=== PATIENT | female | born 1960 | race Caucasian/White ===

== ENCOUNTER 2019-04-29 19:13 | Emergency (ER) | payer MEDICARE ==
[2019-04-29] MEDS ORDERED: NS 1,000 ML IV ONE (19:45)
[2019-04-29 19:48] LABS: BASO % 0.6 % (0.0-1.0); EOS # 0.1 10^3/uL (0.0-0.50); EOS % 1.8 % (0.0-3.0); HEMATOCRIT 40.4 % (36.0-47.0); LYMPH # 1.5 10^3/uL (1.5-4.5); LYMPH % 21.6 % (24.0-44.0); MEAN CORPUSCULAR HEMOGLOBIN 32.6 pg (27.0-33.0); MEAN CORPUSCULAR HGB CONC 34.7 g/dl (32.0-36.5); MEAN CORPUSCULAR VOLUME 94.2 fl (80.0-96.0); MONO # 0.6 10^3/uL (0.0-0.8); MONO % 8.3 % (0.0-5.0); NEUTROPHILS # 4.8 10^3/uL (1.8-7.7); NEUTROPHILS % 67.1 % (36.0-66.0); PLATELET COUNT, AUTOMATED 233 10^3/uL (150-450); RED BLOOD COUNT 4.29 10^6/uL (4.00-5.40); WHITE BLOOD COUNT 7.1 10^3/uL (4.0-10.0)
[2019-04-29 20:03] LABS: PARTIAL THROMBOPLASTIN TIME 25.2 SECONDS (25.0-38.4)
[2019-04-29 20:04] LABS: ALBUMIN 3.2 GM/DL (3.2-5.2); ALT/SGPT 72 U/L (12-78); AMYLASE 34 U/L (25-115); BILIRUBIN,DIRECT 0.1 MG/DL (0.0-0.2); BILIRUBIN,TOTAL 0.3 MG/DL (0.2-1.0); ETHYL ALCOHOL (ETHANOL) < 0.003 % (0.000-0.010); TOTAL PROTEIN 6.5 GM/DL (6.4-8.2)
--- NOTE | 2019-04-29 20:05 | REP ---
Clinical: Trauma. Fall. Technique: Two portable views of the right humerus. Findings: There is a comminuted nondisplaced fracture involving the humeral surgical neck. Impression: Nondisplaced comminuted fracture involving the proximal humeral surgical neck. Electronically Signed by Lux Puente MD 04/29/2019 07:56 P
--- NOTE | 2019-04-29 20:07 | REP ---
Clinical: Trauma. Fall. Comparison: None . Findings: The mediastinum and cardiac silhouette are stable and within normal limits for portable technique. The lung ferguson demonstrate chronic appearing interstitial changes without acute consolidation, effusion, or pneumothorax. Evidence of prior cervicothoracic fixation. Subtle injury involving the right proximal humerus cannot be excluded. Impression: No acute cardiopulmonary process appreciated. Electronically Signed by Lux Puente MD 04/29/2019 07:58 P
[2019-04-29 20:30] LABS: INR 1.04; PROTHROMBIN TIME 13.3 SECONDS (11.8-14.0)
[2019-04-29] MEDS ORDERED: fentaNYL 100 MCG/2 ML INJECTION (J3010) IV ONE (20:30)
[2019-04-29] MEDS ORDERED: KETAMINE HCL 200 MG/20 ML VIAL IV ONE (20:45)
[2019-04-29] MEDS ORDERED: ONDANSETRON 4MG/2ML VIAL (J2405) IV ONE (20:45)
[2019-04-29] MEDS ORDERED: PROPOFOL 200 MG/20 ML VIAL IV PRN (20:45)
[2019-04-29] MEDS: MORPHINE 2 MG/ML 1ML SYRINGE (J2270) IV PRN ×2 (21:28→23:17)
[2019-04-29] MEDS ORDERED: PATIENT COMMENT (21:58)
--- NOTE | 2019-04-29 22:25 | REPVR ---
EXAM: CT Head Without Contrast EXAM DATE/TIME: 04/29/2019 9:59 PM CLINICAL HISTORY: 59 years old, female; Injury or trauma; Fall; Initial encounter; Blunt trauma (contusions or hematomas) TECHNIQUE: Imaging protocol: Axial computed tomography images of the head without contrast. Radiation optimization: All CT scans at this facility use at least one of these dose optimization techniques: automated exposure control; mA and/or kV adjustment per patient size (includes targeted exams where dose is matched to clinical indication); or iterative reconstruction. COMPARISON: No relevant prior studies available. FINDINGS: Brain: Normal. No hemorrhage. Unremarkable white matter. No mass effect. Ventricles: Normal. No ventriculomegaly. Bones/joints: Unremarkable. No acute fracture. Sinuses: Visualized sinuses are unremarkable. No fluid levels. Mastoid air cells: Visualized mastoid air cells are well aerated. No mastoid effusion. Soft tissues: Unremarkable. IMPRESSION: No acute intracranial abnormality. Electronically signed by: Luis Clark On 04/29/2019 22:25:32 PM
--- NOTE | 2019-04-29 22:32 | REPVR ---
EXAM: CT Cervical Spine Without Contrast EXAM DATE/TIME: 04/29/2019 9:59 PM CLINICAL HISTORY: 59 years old, female; Neck pain; Additional info: Trauma TECHNIQUE: Imaging protocol: Axial computed tomography images of the cervical spine without contrast. Coronal and sagittal reformatted images were created and reviewed. Radiation optimization: All CT scans at this facility use at least one of these dose optimization techniques: automated exposure control; mA and/or kV adjustment per patient size (includes targeted exams where dose is matched to clinical indication); or iterative reconstruction. COMPARISON: No relevant prior studies available. FINDINGS: Vertebrae: Normal alignment. 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 Mild foraminal stenosis on the left at C2, mild foraminal stenosis on the right at C3, moderate bilateral foraminal stenosis at C6 secondary to uncinate joint hypertrophic changes. Anatomy of the spinal canal markedly limited by the presence of beam hardening artifact from metallic hardware. Other bones/joints: Status post anterior interbody fusion of C4-C7 using intravertebral screws and metallic sideplate. Status post posterior interbody fusion of the proximal visualized thoracic spine using transpedicular screws and long metallic rods. Status post lateral laminectomies at C6, T1 and T2. Soft tissues: Unremarkable. Lungs: Lung apices are normal. IMPRESSION: No acute findings. Status post multilevel interbody fusion of the cervical and thoracic spine. Electronically signed by: Luis Clark On 04/29/2019 22:32:02 PM
[2019-04-29 23:57] VITALS: BP 104/64
[2019-04-30] MEDS ORDERED: MORPHINE 2 MG/ML 1ML SYRINGE (J2270) IV ONE (00:15)
--- NOTE | 2019-04-30 06:05 | REP ---
Clinical: Post reduction. Technique: Portable neutral view of the right shoulder. Findings: Comminuted displaced and angulated fracture involving the surgical neck of the proximal humerus is again appreciated. Impression: Comminuted displaced fracture through the proximal surgical neck of the humerus. Electronically Signed by Lux Puente MD 04/30/2019 05:56 A
--- NOTE | 2019-04-30 21:31 | ECGEPIP ---
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
== END 2019-04-30 00:07 | disposition short-term general hospital (02) ==
LOC: M ED 19:13
DX: S42.201A Unspecified fracture of upper end of right humerus, initial encounter for closed fracture (principal); S43.004A Unspecified dislocation of right shoulder joint, initial encounter; W01.0XXA Fall on same level from slipping, tripping and stumbling without subsequent striking against object, initial encounter; Y92.018 Other place in single-family (private) house as the place of occurrence of the external cause; I10 Essential (primary) hypertension; E11.9 Type 2 diabetes mellitus without complications; E78.9 Disorder of lipoprotein metabolism, unspecified; Z88.8 Allergy status to other drugs, medicaments and biological substances; F17.210 Nicotine dependence, cigarettes, uncomplicated
CPT/HCPCS: 23650; 70450; 71045; 72125; 73020; 73060; 80047; 80076; 82150; 85025; 85610; 85730; 93005; 93041; 94760; 96374; 96375; 96376; 99285; G0480; J2270; J2405; J3010

== ENCOUNTER 2021-05-02 15:36 | Emergency (ER) | payer MEDICAID, MEDICARE ==
[~2021-05-02] VITALS: Ht 157.5 cm; Wt 75.0 kg
[~2021-05-02 15:36] MED LIST: PATIENT COMMENT
[2021-05-02] MEDS ORDERED: FURO20TA2 (16:04)
[2021-05-02] MEDS ORDERED: PANT40TA29 (16:04)
[2021-05-02] MEDS ORDERED: CELE1CAP9 (16:04)
[2021-05-02] MEDS ORDERED: GABA600T4 (16:04)
[2021-05-02] MEDS ORDERED: CYCL-707 (16:04)
[2021-05-02] MEDS ORDERED: CHAN1PAK11 (16:04)
[2021-05-02] MEDS ORDERED: CLON0.5T2 (16:04)
[2021-05-02] MEDS ORDERED: DULO1CAP4 (16:04)
[2021-05-02] MEDS ORDERED: TRAM50TA2 (16:04)
[2021-05-02] MEDS ORDERED: HYDR50CA2 (16:04)
[2021-05-02] MEDS ORDERED: LISI2.5T2 (16:04)
[2021-05-02] MEDS ORDERED: ROSU40TA4 (16:04)
[2021-05-02 16:26] LABS: BASO # 0.1 10^3/uL (0.0-0.2); BASO % 0.6 % (0.0-1.0); EOS # 0.2 10^3/uL (0.0-0.5); EOS % 2.6 % (0.0-3.0); HEMATOCRIT 44.5 % (36.0-47.0); HEMOGLOBIN 15.4 g/dl (12.0-15.5); LYMPH % 25.5 % (24.0-44.0); MEAN CORPUSCULAR HEMOGLOBIN 31.5 pg (27.0-33.0); MEAN CORPUSCULAR HGB CONC 34.6 g/dl (32.0-36.5); MONO # 0.8 10^3/uL (0.0-0.8); MONO % 10.8 % (2.0-8.0); NEUTROPHILS # 4.7 10^3/uL (1.5-8.5); NEUTROPHILS % 60.4 % (36.0-66.0); PLATELET COUNT, AUTOMATED 242 10^3/uL (150-450); RED BLOOD COUNT 4.89 10^6/uL (4.00-5.40); WHITE BLOOD COUNT 7.7 10^3/uL (4.0-10.0)
--- NOTE | 2021-05-02 17:03 | REP ---
INDICATION: trauma. COMPARISON: None TECHNIQUE: Three views of the right shoulder were performed. FINDINGS: There is a total shoulder prosthesis the glenoid and humeral components of which appear to be well aligned. There is no evidence of an acute fracture. There is no evidence of dislocation or subluxation. IMPRESSION: No evidence of an acute abnormality. Consider further evaluation with CT. There is heterotopic bone formation seen adjacent to the lateral border of the scapula which appears chronic. <Electronically signed by Moris Ardon > 05/02/21 [id number]
--- NOTE | 2021-05-02 17:05 | REP ---
INDICATION: sob COMPARISON: 04/29/2019 TECHNIQUE: Portable AP view of the chest FINDINGS: Examination is limited by portable technique and positioning as well as underpenetration. Visualized portions of the mediastinum and cardiac silhouette appear relatively stable and within normal limits. No obvious consolidation, effusion or pneumothorax. Skeletal structures again demonstrate prior cervicothoracic fixation and right shoulder replacement. IMPRESSION: No obvious acute process. <Electronically signed by Lux Puente > 05/02/21 [id number]
[2021-05-02 17:06] LABS: BLOOD UREA NITROGEN 8 MG/DL (7-18); CALCIUM LEVEL 9.3 MG/DL (8.8-10.2); CARBON DIOXIDE LEVEL 32 MEQ/L (21-32); CHLORIDE LEVEL 101 MEQ/L (98-107); CK-MB VALUE MASS 1.3 NG/ML (<3.6); CPK CREATINE PHOSPHOKINASE 133 U/L (26-192); CREATININE FOR GFR 1.14 MG/DL (0.55-1.30); FREE T4 0.56 NG/DL (0.76-1.46); GLOMERULAR FILTRATION RATE 51.4 (>45); GLUCOSE, FASTING 92 MG/DL (70-100); MAGNESIUM LEVEL 2.5 MG/DL (1.8-2.4); MB/CK RELATIVE INDEX 0.98 (< OR =4); POTASSIUM SERUM 3.6 MEQ/L (3.5-5.1); SODIUM LEVEL 138 MEQ/L (136-145); THYROID STIMULATING HORMONE 0.954 uIU/ML (0.358-3.740); TROPONIN I < 0.02 NG/ML (< 0.10)
[2021-05-02] MEDS ORDERED: NS 500 ML IV ONE (17:15)
[2021-05-02 18:00] VITALS: BP 117/65
--- NOTE | 2021-05-02 22:42 | ECGEPIP ---
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
== END 2021-05-02 18:26 | disposition home or self-care (01) ==
LOC: EDBD 15:36 → M ED 15:36
DX: S40.011A Contusion of right shoulder, initial encounter (principal); W01.0XXA Fall on same level from slipping, tripping and stumbling without subsequent striking against object, initial encounter; Y92.512 Supermarket, store or market as the place of occurrence of the external cause; Y93.9 Activity, unspecified; Y99.9 Unspecified external cause status; Z91.81 History of falling; Z88.8 Allergy status to other drugs, medicaments and biological substances; Z79.899 Other long term (current) drug therapy